=== PATIENT | male | born 1950 | race Caucasian/White ===

== ENCOUNTER → 2021-09-20 | Outpatient (CLI) | payer OTHER ==
[~2021-09-20] MED LIST: ASPI81TA26 PO; ASPI81TA60 PO; CIPR-249 PO; CIPR5SUS PO; D-101000 PO; FERR325T3 PO; FISH5CAP PO; FLAG500T PO; FLOM0.4C39 PO; KP F1200 PO; LISI5TAB11 PO; LOPR1TAB6 PO; OCUV1CAP4 PO; PRESCAP PO; PRIL20TA2 PO; TOPR25TA PO; TYLE325T5 PO; TYLE650T30 PO; VITA100066 PO; VITA500C24 PO; VITMTA PO; ZOCO10TA PO; ZOCO80TA PO; ZOFR4TAB14 PO
== END ==
LOC: M LABSMTC 09:42
PROVIDERS: ATTEND Anesthesiology
DX: Z01.812 Encounter for preprocedural laboratory examination (principal); Z20.822 Contact with and (suspected) exposure to COVID-19

== ENCOUNTER 2021-09-25 06:33 | Day surgery (SDC) | payer OTHER ==
[~2021-09-25] VITALS: Ht 185.4 cm; Wt 68.0 kg
[~2021-09-25 06:33] MED LIST changes: +NS 1,000 ML IV ONE
[2021-09-25] MEDS ORDERED: propofoL 200 MG/20 ML VIAL As Ordered ONE (07:20)
[2021-09-25] MEDS ORDERED: LIDOCAINE 2% 100MG/5ML SDV (FOR ANES.) As Ordered ONE ×2 (07:20→12:45)
[2021-09-25 08:40] VITALS: BP 131/65
== END 2021-09-25 08:56 | disposition home or self-care (01) ==
LOC: M OPP 06:33
PROVIDERS: ATTEND Internal Medicine Gastroenterology
DX: Z12.11 Encounter for screening for malignant neoplasm of colon (principal); D12.6 Benign neoplasm of colon, unspecified; K62.7 Radiation proctitis; K57.30 Diverticulosis of large intestine without perforation or abscess without bleeding; K64.8 Other hemorrhoids; K22.70 Barrett's esophagus without dysplasia; K44.9 Diaphragmatic hernia without obstruction or gangrene; Z98.0 Intestinal bypass and anastomosis status; Z13.810 Encounter for screening for upper gastrointestinal disorder; Z79.82 Long term (current) use of aspirin; Z79.899 Other long term (current) drug therapy; Z88.0 Allergy status to penicillin; Z86.74 Personal history of sudden cardiac arrest; Z86.19 Personal history of other infectious and parasitic diseases; Z87.19 Personal history of other diseases of the digestive system

== ENCOUNTER → 2022-06-09 | Outpatient (CLI) | payer OTHER ==
[~2022-06-09] MED LIST changes: -NS 1,000 ML IV ONE; +SIMV-252 PO; -ZOCO10TA PO
== END ==
LOC: M SLEEP 20:00
PROVIDERS: ATTEND Nurse Practitioner Family
DX: G47.33 Obstructive sleep apnea (adult) (pediatric) (principal)

== ENCOUNTER 2023-07-07 05:36 | Inpatient (IN) | payer MEDICARE, OTHER ==
[~2023-07-07] VITALS: Ht 185.4 cm; Wt 62.6 kg
[2023-07-07] MEDS ORDERED: ONDANSETRON 4MG 2ML VIAL IV ONE (05:50)
[2023-07-07 06:35] LABS: VENOUS BASE EXCESS 2.1 (-2.0-2.0); VENOUS HCO3 30.2 MMOL/L (23.0-27.0); VENOUS O2 SATURATION 74.5 % (60.0-80.0); VENOUS PARTIAL PRESSURE CO2 62.4 mmHg (38.0-50.0); VENOUS PARTIAL PRESSURE O2 41.4 mmHg (30.0-50.0); VENOUS PH 7.302 UNITS (7.330-7.430); VENOUS STANDARD HCO3 25.7 MMOL/L; VENOUS TOTAL CO2 32.1 MMOL/L (24.0-28.0)
[2023-07-07 06:41] LABS: BASO % 0.2 % (0.0-1.0); EOS % 0.3 % (0.0-3.0); HEMOGLOBIN 13.7 g/dl (13.5-17.5); LYMPH # 0.8 10^3/uL (1.5-5.0); LYMPH % 8.4 % (24.0-44.0); MEAN CORPUSCULAR HEMOGLOBIN 30.5 pg (27.0-33.0); MEAN CORPUSCULAR HGB CONC 33.4 g/dl (32.0-36.5); MEAN CORPUSCULAR VOLUME 91.3 fl (80.0-96.0); MONO # 0.7 10^3/uL (0.0-0.8); MONO % 7.8 % (2.0-8.0); NEUTROPHILS # 7.5 10^3/uL (1.5-8.5); PLATELET COUNT, AUTOMATED 191 10^3/uL (150-450); RED BLOOD COUNT 4.49 10^6/uL (4.30-6.10)
[2023-07-07 07:13] LABS: LIPASE 25 U/L (12-53)
[2023-07-07 07:14] LABS: CK-MB VALUE MASS 2.2 NG/ML (<3.6)
[2023-07-07 07:16] LABS: ALBUMIN 3.9 G/DL (3.2-5.2); ALKALINE PHOSPHATASE 87 U/L (46-116); ALT/SGPT 38 U/L (7.0-40); AST/SGOT 30 U/L (<34); BILIRUBIN,DIRECT 0.3 MG/DL (<0.4); BILIRUBIN,TOTAL 0.9 MG/DL (0.3-1.2); BLOOD UREA NITROGEN 24 MG/DL (9-23); CALCIUM LEVEL 9.7 MG/DL (8.3-10.6); CARBON DIOXIDE LEVEL 30 MMOL/L (20-31); CHLORIDE LEVEL 100 MMOL/L (98-107); CK-MB VALUE MASS 2.2 NG/ML (<3.6); CPK CREATINE PHOSPHOKINASE 58 U/L (46-171); CREATININE FOR GFR 0.77 MG/DL (0.70-1.30); GLOMERULAR FILTRATION RATE > 60.0 (>42); GLUCOSE, FASTING 140 MG/DL (74-106); MB/CK RELATIVE INDEX 3.79 (< OR =4); POTASSIUM SERUM 4.2 MMOL/L (3.5-5.1); SODIUM LEVEL 138 MMOL/L (136-145); TOTAL PROTEIN 6.7 G/DL (5.7-8.2)
[2023-07-07 07:18] LABS: RSV AMPLIFICATION NEGATIVE (NEGATIVE)
[2023-07-07 07:23] LABS: MB/CK RELATIVE INDEX 3.14 (< OR =4)
[2023-07-07] MEDS ORDERED: FAMOTIDINE IV BAG 20 MG in IV 1 EA IV ONE (07:30)
[2023-07-07] MEDS ORDERED: ISOVUE-370 76% 100ML VIAL As Ordered ONE (07:53)
[2023-07-07] MEDS ORDERED: FAMOTIDINE 20MG/2ML VIAL IV ONE (08:00)
[2023-07-07] MEDS ORDERED: MED REC IN PROGRESS XX SCH (10:15)
[2023-07-07] MEDS ORDERED: ONDANSETRON 4MG 2ML VIAL IV PRN (10:20)
[2023-07-07] MEDS ORDERED: DILT120C78 PO (10:46)
[2023-07-07] MEDS ORDERED: ROSU40TA4 PO (10:46)
[2023-07-07] MEDS ORDERED: CULT10CA4 PO (10:46)
[2023-07-07] MEDS ORDERED: PRESCAP PO (10:50)
[2023-07-07] MEDS ORDERED: HOME MED LIST COMPLETE! XX SCH (10:55)
[2023-07-07] MEDS: PANTOPRAZOLE 40MG VIAL IV SCH (11:05)
[2023-07-07] MEDS: ENOXAPARIN 40MG/0.4ML SYRINGE (J1650 PER 10MG) SC SCH (11:05)
[2023-07-07] MEDS: NS 1,000 ML IV SCH ×2 (11:06→21:22)
[2023-07-07] MEDS: ASPIRIN 300 MG SUPP PR SCH (11:06)
[2023-07-07 12:03] LABS: INR 1.03; PROTHROMBIN TIME 13.2 SECONDS (12.5-14.5)
[2023-07-07 12:04] LABS: PARTIAL THROMBOPLASTIN TIME 30.8 SECONDS (24.8-34.2)
[2023-07-07 12:15] VITALS: BP 130/78; TEMP 98.8; O2SAT 92
[2023-07-07 14:00] VITALS: BP 130/68; TEMP 98.8; O2SAT 95
[2023-07-07 20:40] VITALS: BP 135/70; TEMP 99.1; O2SAT 98
[2023-07-08] MEDS ORDERED: ACETAMINOPHEN *IV* 1,000 MG in IV 1 EA IV ONE (02:00)
[2023-07-08 05:27] VITALS: BP 135/72; TEMP 98.2; O2SAT 96
[2023-07-08 06:19] LABS: HEMATOCRIT 36.6 % (42.0-52.0); HEMOGLOBIN 11.8 g/dl (13.5-17.5); MEAN CORPUSCULAR HEMOGLOBIN 30.1 pg (27.0-33.0); MEAN CORPUSCULAR HGB CONC 32.2 g/dl (32.0-36.5); MEAN CORPUSCULAR VOLUME 93.4 fl (80.0-96.0); PLATELET COUNT, AUTOMATED 164 10^3/uL (150-450); RED BLOOD COUNT 3.92 10^6/uL (4.30-6.10); WHITE BLOOD COUNT 5.8 10^3/uL (4.0-10.0)
[2023-07-08] MEDS: NS 1,000 ML IV SCH ×2 (06:36→14:52)
[2023-07-08 06:39] LABS: ALBUMIN 3.1 G/DL (3.2-5.2); ALKALINE PHOSPHATASE 75 U/L (46-116); ALT/SGPT 31 U/L (7.0-40); AST/SGOT 24 U/L (<34); BILIRUBIN,TOTAL 0.7 MG/DL (0.3-1.2); BLOOD UREA NITROGEN 25 MG/DL (9-23); CALCIUM LEVEL 8.6 MG/DL (8.3-10.6); CARBON DIOXIDE LEVEL 26 MMOL/L (20-31); CHLORIDE LEVEL 103 MMOL/L (98-107); CREATININE FOR GFR 0.78 MG/DL (0.70-1.30); GLOMERULAR FILTRATION RATE > 60.0 (>42); GLUCOSE, FASTING 62 MG/DL (74-106); POTASSIUM SERUM 4.1 MMOL/L (3.5-5.1); SODIUM LEVEL 141 MMOL/L (136-145); TOTAL PROTEIN 5.6 G/DL (5.7-8.2)
[2023-07-08 08:54] VITALS: BP 150/60; TEMP 98.4; O2SAT 98
[2023-07-08] MEDS ORDERED: GLUCOSE 4GM CHEW TABLET PO PRN (10:10)
[2023-07-08] MEDS ORDERED: DEXTROSE 50% 50ML SYRINGE IV PRN (10:10)
[2023-07-08] MEDS ORDERED: GLUCAGON INJ 1MG VIAL SC PRN (10:10)
[2023-07-08] MEDS: ENOXAPARIN 40MG/0.4ML SYRINGE (J1650 PER 10MG) SC SCH (10:25)
[2023-07-08] MEDS: PANTOPRAZOLE 40MG VIAL IV SCH (11:08)
[2023-07-08] MEDS: ASPIRIN 300 MG SUPP PR SCH (11:08)
[2023-07-08 14:03] VITALS: BP 150/64; TEMP 98.8; O2SAT 99
[2023-07-08] MEDS ORDERED: D5W/0.9% SODIUM CHLORIDE 1,000 ML IV SCH (15:00)
[2023-07-08 20:36] VITALS: BP 156/72; TEMP 98.8; O2SAT 97
[2023-07-09 05:08] VITALS: BP 150/73; TEMP 98.6; O2SAT 97
[2023-07-09 05:57] LABS: HEMATOCRIT 32.5 % (42.0-52.0); HEMOGLOBIN 10.9 g/dl (13.5-17.5); MEAN CORPUSCULAR HEMOGLOBIN 29.9 pg (27.0-33.0); MEAN CORPUSCULAR HGB CONC 33.5 g/dl (32.0-36.5); MEAN CORPUSCULAR VOLUME 89.3 fl (80.0-96.0); PLATELET COUNT, AUTOMATED 153 10^3/uL (150-450); RED BLOOD COUNT 3.64 10^6/uL (4.30-6.10); WHITE BLOOD COUNT 4.3 10^3/uL (4.0-10.0)
[2023-07-09 06:23] LABS: ALBUMIN 2.7 G/DL (3.2-5.2); ALKALINE PHOSPHATASE 64 U/L (46-116); ALT/SGPT 22 U/L (7.0-40); AST/SGOT 22 U/L (<34); BILIRUBIN,TOTAL 0.7 MG/DL (0.3-1.2); BLOOD UREA NITROGEN 13 MG/DL (9-23); CALCIUM LEVEL 8.7 MG/DL (8.3-10.6); CARBON DIOXIDE LEVEL 30 MMOL/L (20-31); CHLORIDE LEVEL 106 MMOL/L (98-107); CREATININE FOR GFR 0.73 MG/DL (0.70-1.30); GLOMERULAR FILTRATION RATE > 60.0 (>42); GLUCOSE, FASTING 82 MG/DL (74-106); POTASSIUM SERUM 4.1 MMOL/L (3.5-5.1); SODIUM LEVEL 142 MMOL/L (136-145); TOTAL PROTEIN 5.1 G/DL (5.7-8.2)
[2023-07-09] MEDS ORDERED: PANTOPRAZOLE 40MG TAB (PROTONIX) PO SCH (09:00)
[2023-07-09] MEDS: ENOXAPARIN 40MG/0.4ML SYRINGE (J1650 PER 10MG) SC SCH (09:34)
[2023-07-09] MEDS ORDERED: COLA100C5 PO (14:04)
[2023-07-09] MEDS ORDERED: SENN8.6T28 PO (14:04)
== END 2023-07-09 15:16 | disposition home or self-care (01) | DRG 390 ==
LOC: M ED 05:36 → M ED INP 10:20 → M MSPAV 12:17
PROVIDERS: ADMIT Internal Medicine; ATTEND Internal Medicine
DX: K56.600 Partial intestinal obstruction, unspecified as to cause (principal); I25.10 Atherosclerotic heart disease of native coronary artery without angina pectoris; I25.2 Old myocardial infarction; F43.10 Post-traumatic stress disorder, unspecified; K22.70 Barrett's esophagus without dysplasia; N40.0 Benign prostatic hyperplasia without lower urinary tract symptoms; G47.33 Obstructive sleep apnea (adult) (pediatric); D50.9 Iron deficiency anemia, unspecified; Z92.3 Personal history of irradiation; Z85.46 Personal history of malignant neoplasm of prostate; Z85.028 Personal history of other malignant neoplasm of stomach; Z79.899 Other long term (current) drug therapy; Z79.82 Long term (current) use of aspirin; Z88.0 Allergy status to penicillin; Z95.2 Presence of prosthetic heart valve; H35.30 Unspecified macular degeneration; Z77.098 Contact with and (suspected) exposure to other hazardous, chiefly nonmedicinal, chemicals

== ENCOUNTER 2025-05-02 03:47 | Emergency (ER) | payer OTHER, MEDICARE ==
[~2025-05-02] VITALS: Ht 185.4 cm; Wt 67.4 kg
[~2025-05-02 03:47] MED LIST changes: +COLA100C5 PO; +CULT10CA4 PO; +DILT120C78 PO; -FLOM0.4C39 PO; +ROSU40TA81 PO; +SENN8.6T28 PO; +TAMS-18 PO
[2025-05-02] MEDS ORDERED: NITROGLYCERIN 0.4 MG SUBL TABLET SL PRN (04:00)
[2025-05-02 04:34] LABS: BASO # 0.0 10^3/uL (0.0-0.2); BASO % 0.5 % (0.0-1.0); EOS # 0.2 10^3/uL (0.0-0.5); EOS % 3.9 % (0.0-3.0); LYMPH # 1.0 10^3/uL (1.5-5.0); LYMPH % 23.3 % (24.0-44.0); MONO # 0.6 10^3/uL (0.0-0.8); MONO % 13.2 % (2.0-8.0); NEUTROPHILS # 2.6 10^3/uL (1.5-8.5); NEUTROPHILS % 58.9 % (36.0-66.0); PLATELET COUNT, AUTOMATED 163 10^3/uL (150-450)
[2025-05-02 04:56] LABS: CK-MB VALUE MASS 3.2 NG/ML (<3.6)
[2025-05-02 04:57] LABS: CALCIUM LEVEL 9.1 MG/DL (8.3-10.6); CARBON DIOXIDE LEVEL 31 MMOL/L (20-31); CHLORIDE LEVEL 106 MMOL/L (98-107); CREATININE FOR GFR 0.83 MG/DL (0.70-1.30); GLOMERULAR FILTRATION RATE > 90.0 (>42); POTASSIUM SERUM 4.6 MMOL/L (3.5-5.1); SODIUM LEVEL 144 MMOL/L (136-145)
[2025-05-02 04:58] LABS: CPK CREATINE PHOSPHOKINASE 88 U/L (46-171); MB/CK RELATIVE INDEX 3.63 (< OR =4)
[2025-05-02 06:02] LABS: CK-MB VALUE MASS 3.2 NG/ML (<3.6)
[2025-05-02 06:04] LABS: CPK CREATINE PHOSPHOKINASE 78.0 U/L (46-171); MB/CK RELATIVE INDEX 4.1 (< OR =4)
[2025-05-02 06:19] VITALS: BP 116/66
[2025-05-02] MEDS: NITROGLYCERIN 0.4 MG SUBL TABLET SL STA (06:19)
[2025-05-02] MEDS: SIMETHICONE 80MG CHEW TAB PO STA (06:19)
[2025-05-02] MEDS ORDERED: HEPARIN SOD 5000 UNITS/ML 1 ML VIAL/SYRINGE IV PRN (08:05)
[2025-05-02] MEDS: HEPARIN SOD 5000 UNITS/ML 1 ML VIAL/SYRINGE IV ONE (08:31)
[2025-05-02 08:33] LABS: INR 0.89
[2025-05-02] MEDS: HEPARIN DRIP 25,000 UNITS in IV 1 EA IV SCH (08:33)
[2025-05-02 08:45] VITALS: BP 127/69
[2025-05-02 08:47] VITALS: TEMP 97.1; O2SAT 97
== END 2025-05-02 08:59 | disposition short-term general hospital (02) ==
LOC: M ED 03:47
DX: I21.4 Non-ST elevation (NSTEMI) myocardial infarction (principal); I25.2 Old myocardial infarction; I10 Essential (primary) hypertension; E78.5 Hyperlipidemia, unspecified; K21.9 Gastro-esophageal reflux disease without esophagitis; E55.9 Vitamin D deficiency, unspecified; N40.2 Nodular prostate without lower urinary tract symptoms; Z88.0 Allergy status to penicillin; Z79.82 Long term (current) use of aspirin; Z79.899 Other long term (current) drug therapy

== ENCOUNTER → 2025-06-26 | Outpatient (CLI) | payer OTHER, MEDICARE | LOC: M SLEEP HO 11:14 | PROVIDERS: ATTEND Nurse Practitioner Family | DX: G47.33 Obstructive sleep apnea (adult) (pediatric) (principal) ==